=== PATIENT | female | born 1985 | race Hispanic/Latino ===

== ENCOUNTER 2019-11-20 18:34 | Emergency (ER) | payer OTHER ==
[2019-11-21 14:30] LABS: SARS-CoV-2 MS2 Positive; SARS-CoV-2 N Gene Negative; SARS-CoV-2 S Gene Negative; SARS-CoV-2 by NAA Not Detected (NotDetected); SARS-CoV-2 orf1ab Negative
== END 2019-11-20 18:58 | disposition home or self-care (01) ==
LOC: ERS 18:34
DX: R19.7 Diarrhea, unspecified (principal); R05 Cough; R06.02 Shortness of breath; Z20.828 Contact with and (suspected) exposure to other viral communicable diseases
CPT/HCPCS: 87635; 99283; U0003

== ENCOUNTER 2021-10-01 15:27 | Outpatient (CLI) | payer OTHER | END 2021-10-01 15:28 | disposition home or self-care (01) | LOC: SCSRAD 15:27 | PROVIDERS: ATTEND Family Medicine | DX: M79.672 Pain in left foot (principal); G89.29 Other chronic pain ==

== ENCOUNTER 2022-10-14 10:05 | Outpatient (CLI) | payer OTHER | END 2022-10-14 10:06 | disposition home or self-care (01) | LOC: ULT 10:05 | PROVIDERS: ATTEND Family Medicine | DX: R10.11 Right upper quadrant pain (principal); K76.0 Fatty (change of) liver, not elsewhere classified | CPT/HCPCS: 76705 ==

== ENCOUNTER 2023-02-01 12:57 | Outpatient (CLI) | payer OTHER | END 2023-02-01 12:58 | disposition home or self-care (01) | LOC: RAD 12:57 | PROVIDERS: ATTEND Family Medicine | DX: M25.561 Pain in right knee (principal); W19.XXXA Unspecified fall, initial encounter ==